=== PATIENT | female | born 1980 | race Caucasian/White ===

== ENCOUNTER 2017-10-05 19:59 | Emergency (ER) | END 2017-10-05 23:38 | disposition home or self-care (01) ==

== ENCOUNTER 2018-05-04 10:17 | Inpatient (IN) | payer OTHER ==
[~2018-05-04] VITALS: Ht 152.4 cm; Wt 67.0 kg
[2018-05-04 10:31] VITALS: Ht 152.4 cm; Wt 67.0 kg
[2018-05-04] MEDS ORDERED: PNV11TAB PO (10:31)
[2018-05-04 10:32] VITALS: BP 115/70; PULSE 70; RESP 18
--- NOTE | 2018-05-04 11:32 | TRIAGE ---
OB Triage Datetime Report Generated by CPN: 05/04/2018 11:32 Datetime: 05/04/2018 11:23 Vaginal Exam Dilatation (cms): 2.0 Effacement (%): 60 Station: -2 Exam By: A JAVONUKASYAN Datetime: 05/04/2018 10:35 Assessment Type: Triage EGA: 39.4 Maternal Assessment Level of Consciousness: Fully Conscious DTR's/Clonus: DTRs 2+; No Clonus Headache: Denies Blurred Vision: No Respiratory Effort: Unlabored; Regular Rhythm; Equal Expansion Breath Sounds, Left: Clear and Equal Breath Sounds, Right: Clear and Equal Nausea/Vomiting: Denies RUQ Epigastric Pain: Denies Lower Extremities Edema: None Degree: None Upper Extremities Edema: None Degree: None Facial Edema: None Fall Risk Assessment History of Falling: (0) No Secondary Diagnosis: (0) No Ambulatory Aid: (0) Bedrest/Nurse Assist IV Therapy: (0) No Gait: (0) Normal/Bedrest/Immobile Mental Status: (0) Oriented to Own Ability Fall Score: 0 Fall Risk Score Definition: No Risk: No action required Labor Evaluation Frequency: OCCAS Monitor Mode: External Duration (sec)2399: 60-70 Quality: Mild Pattern: Normal: <= 5 Contractions in 10 Minutes Resting Tone [place]: Relaxed Heart Rate FHR Baseline Rate: 135 Monitor Mode: External US Variability: Moderate 6-25 bpm Accelerations: 15X15 Decelerations: None Category: Category I Datetime: 05/04/2018 10:34 Time of Arrival: 05/04/2018 10:10 Arrived By: Ambulatory Arrived From: Home Chief Complaint: DFM Movement: Present Contractions: Denies/Absent Rupture of Membranes: Denies Vaginal Bleeding: None Vaginal Discharge: Denies Recent Sexual Intercouse: Denies Abdominal Trauma: Not Applicable Patient Complaints: Other Time Provider Notified: 05/04/2018 10:45 Provider Notified: DR NOWAK Initial Plan: JAVID BPKirstin
[2018-05-04] MEDS ORDERED: METHYLERGONOVINE 0.2 MG INJ IM PRN ×2 (12:00→23:30)
[2018-05-04] MEDS ORDERED: OXYTOCIN 30 UNITS/LR 500 ML IV SCH ×4 (12:00→23:15)
[2018-05-04] MEDS ORDERED: CARBOPROST 250 MCG INJ IM PRN ×2 (12:00→23:30)
[2018-05-04] MEDS ORDERED: BUTORPHANOL 2 MG INJ IV PRN (12:00)
[2018-05-04] MEDS ORDERED: OXYTOCIN 30 UNITS/LR 500 ML IV PRN ×2 (12:00→23:30)
[2018-05-04] MEDS ORDERED: MISOPROSTOL 200 MCG TAB PR PRN ×2 (12:00→23:30)
[2018-05-04] MEDS ORDERED: IBUPROFEN 600 MG TAB PO PRN (12:00)
[2018-05-04] MEDS ORDERED: LIDOCAINE 1% (MPF) 30 ML INJ INJ PRN (12:00)
[2018-05-04] MEDS: LACTATED RINGER'S 1,000 ML IV SCH ×2 (12:32→18:52)
--- NOTE | 2018-05-04 17:01 | HP ---
Date/Time of Note Date/Time of Note DATE: 05/04/18 TIME: 16:52 OB - History Hx of Present Free Text/Dictation 37-year-old 012 with single intrauterine at 39 weeks and 4 days with a KIMBERLY of 05/07/2018 complaining of decreased movement. She denies nausea, vomiting, shortness of breath, chest pain, headache, visual changes, vaginal bleeding or LOF. Chief Complaint: Decreased movement Estimated Due Date: May 07, 2018 : 4 Para: 2 Spontaneous : 1 Therapeutic : 0 Care: Good Care Ultrasounds: Normal mid trimester US Obstetrical Complications: None Medical Complications: None Past Family/Social History * Past Medical, Surgical, Family and Obstetric Histories reviewed from chart. Blood Type: O+ Rubella: immune RPR/VDRL: Negative GBS Status: Negative HBsAG: Negative OB Admission Exam Vital Signs Vital Signs Vital Signs Date Temp Pulse Resp B/P (MAP) Pulse Ox O2 O2 Flow FiO2 Time Delivery Rate 05/04/18 98.0 70 18 115/70 Room Air 10:32 (85) Physical Exam HEENT: WNL Heart: Rhythm Normal Lungs: Clear Abdomen: WNL Extremities: Normal Cervical Dilatation: 2cm Effacement: 75% Station: -2 Membranes: Intact Heart Rate: 140's Accelerations: Accelerations Present Decelerations: No Decelerations Varibility: Moderate Contractions on Admission: < 5 Minutes Apart Intensity: Moderate Last 72 hours Lab Results CBC & BMP 05/04/18 12:28 OB Assessment/Plan Other plan: 37-year-old at 39 weeks and 4 days presented to triage with complaint of decreased movement and uterine contractions. cervix is favorable. She was admitted for augmentation of labor. - FHR: No sign of metabolic acidosis- Category I - Continuous EFM, toco - CBC, blood type and screen - Analgesia options with R/B/A discussed in detail with patient - Epidural per patient request - Please see the orders - O+/Rubella: Immune - GBS: negative Admission, procedures, expectations, risks and possible complications have been discussed in detail with the patient. Risk of vaginal delivery including but not limited to bleeding, infection, cervical laceration, placental retention, injury to fetus, blood transfusion, blood transfusion related infection, risk of anesthesia, adhesion, cervical laceration, episiotomy/laceration, possible delivery with risk of bleeding, infection, injury to other organs (bowel, bladder, ureter, vessels, nerves), injury to fetus, blood transfusion, blood transfusion related infection, risk of anesthesia, scar and hernia formation, needs for future , removal of uterus or any other indicated surgery discussed with the patient. She expressed understanding and repeats the risks. All of her questions were answered. She signed the informed consent. PHYSICIAN'S VERIFICATION OF INFORMED CONSENT The patient was counseled regarding the procedure, its indications, risks, potential complications and alternatives and any questions were answered. Consent was obtained. PLANNED PROCEDURE/TREATMENT: Vaginal delivery, episiotomy, repair of laceration possible delivery ELZA NOWAK May 04, 2018 17:01
[2018-05-04 22:20] VITALS: BP 121/64; PULSE 77; RESP 20
--- NOTE | 2018-05-04 23:18 | LDN ---
Date/Time of Note Date/Time of Note DATE: 05/04/18 TIME: 23:18 Delivery Summary May 04, 2018 Patient had precipitous delivery. Delivery without epidural. Shoulder dystocia noted after delivery of the head. Resolved with Chase maneuver and suprapubic pressure. Right shoulder anterior shoulder and behind the symphysis pubis. No fundal pressure applied. With gentle traction while suprapubic pressure was applied and with Macrobid maneuver anterior shoulder then the posterior shoulder and the rest of the body delivered without any complication. There was a first-degree perineal laceration repaired using 3-0 chromic. Hemostasis was complete. Placenta delivered after delivery of the baby shortly. Fundus was firm. Weeks of Gestation 39 weeks and 4 days Placenta Delivered: Spontaneously Meconium: none Episiotomy: No Indication for episiotomy N/A Perineal laceration: 1 Laceration repair: First-degree perineal laceration repaired using 3-0 chromic Anesthesia type: None Estimated blood loss: 300 Sponge & Needle done & correct: Yes All needle counts correct: Yes Any foreign bodies felt in the: No Infant Delivery Information Sex Infant Sex: male Apgars 1 Minute: 8 5 Minute: 9 Suctioning Nose & mouth suctioned at jessica: Yes Delee suction performed: Yes Umbilical Cord Umbilical cord with: 3 Vessels Cord presentations: no nuchal cord Cord Blood was obtained: Yes HARRY SHEETS MD May 04, 2018 23:18
[2018-05-04] MEDS ORDERED: DIPHENHYDRAMINE 25 MG CAP PO PRN (23:30)
[2018-05-04] MEDS ORDERED: ACETAMINOPHEN 325 MG TAB PO PRN (23:30)
[2018-05-04] MEDS ORDERED: ZOLPIDEM 5 MG TAB PO PRN (23:30)
[2018-05-04] MEDS ORDERED: HYDROCODONE/APAP (5/325) TAB PO PRN (23:30)
[2018-05-04] MEDS ORDERED: WITCH HAZEL/GLYCERIN PAD PR PRN (23:30)
[2018-05-04] MEDS ORDERED: LANOLIN HPA 1 PKT TOP PRN (23:30)
[2018-05-04] MEDS ORDERED: ONDANSETRON 4 MG INJ IV PRN (23:30)
[2018-05-04] MEDS ORDERED: NACL 0.9% 3 ML SYG IV SCH (23:30)
[2018-05-04] MEDS: IBUPROFEN 600 MG TAB PO SCH (23:58)
[2018-05-05 03:23] VITALS: BP 120/60; PULSE 77; RESP 20
--- NOTE | 2018-05-05 03:26 | NUR ---
EOSS NO DISTRESS, NEEDS ATTENDED TO MADE COMFORTABLE FOR CBC TODAY
[2018-05-05] MEDS: IBUPROFEN 600 MG TAB PO SCH ×3 (05:19→17:11)
[2018-05-05 07:50] VITALS: BP 80/52; PULSE 76; RESP 16
[2018-05-05] MEDS: SENNA/DOCUSATE NA (8.6MG/50MG) TAB PO SCH ×2 (09:21→20:53)
--- NOTE | 2018-05-05 12:26 | QN ---
Documentation Comment Post normal vaginal delivery day 1 Afebrile Vital signs are stable Abdomen soft Uterus firm Lochia normal Extremities normal LEYLA ROSE MD May 05, 2018 12:26
[2018-05-05 16:00] VITALS: BP 91/66; PULSE 71; RESP 16
--- NOTE | 2018-05-05 17:53 | NUR ---
EOSS: VSS. AMBULATING AND VOIDING. BREAST FEEDING WELL AND GOOD BONDING SEEN WITH THE BABY. FAMILY AT THE BEDSIDE
[2018-05-05 20:29] VITALS: BP 98/58; PULSE 76; RESP 18
[2018-05-06] MEDS: IBUPROFEN 600 MG TAB PO SCH ×3 (00:03→12:56)
[2018-05-06 04:21] VITALS: BP 89/57; PULSE 64; RESP 18
--- NOTE | 2018-05-06 05:18 | NUR ---
EOSS: Vital signs stable. No acute distress. Ambulating well. well. Bonding well with baby. present at bedside.
[2018-05-06] MEDS: SENNA/DOCUSATE NA (8.6MG/50MG) TAB PO SCH (08:43)
[2018-05-06] MEDS ORDERED: MEASLES,MUMPS,RUBELLA VACCINE INJ SC* ONE (09:00)
[2018-05-06] MEDS ORDERED: DIPHTH/TET/ACEL PERTUSS (ADULT) 0.5 ML VIAL IM* ONE (09:00)
[2018-05-06] MEDS ORDERED: VARICELLA VACCINE LIVE/PF 1,350 UNIT/0.5 ML ML SC* ONE (09:00)
--- NOTE | 2018-05-06 09:55 | PD.PPDC ---
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
--- NOTE | 2018-05-06 09:57 | DS ---
Date/Time of Note Date/Time of Note DATE: 05/06/18 TIME: 09:55 Discharge Summary Admission/Discharge Info Admit Date/Time May 04, 2018 at 11:30 Discharge Date/Time May 06, 2018 at 10 AM Discharge Diagnosis Post normal vaginal delivery day 2 Patient Condition: Good Consults None Procedures Normal vaginal delivery Hx of Present Illness Term admitted to the hospital in labor Hospital Course Satisfactory recovery uneventful Home Meds Reported Medications [id number] ( 19) 1 Each Tablet, 1 TAB PO DAILY, TAB 05/04/18 Follow-up Plan instruction given recommended to make appointment to be seen at the clinic in 2 weeks Primary Care Provider Care Physician No Primary Time spent on discharge: < 30 minutes Pending Labs Laboratory Tests Test 05/06/18 07:00 White Blood Count 10.0 10^3/ul (4.8-10.8) Red Blood Count 3.74 10^6/ul (4.20-5.40) Hemoglobin 12.0 g/dl (12.0-16.0) Hematocrit 36.5 % (37.0-47.0) Mean Corpuscular Volume 97.6 fl (82.0-101.0) Mean Corpuscular Hemoglobin 32.1 pg (29.0-33.0) Mean Corpuscular Hemoglobin Concent 32.9 g/dl (32.0-37.0) Red Cell Distribution Width 12.9 % (11.5-14.5) Platelet Count 163 10^3/UL (140-415) Mean Platelet Volume 11.4 fl (7.4-10.4) Immature Granulocytes % 0.600 % (0.001-0.429) Neutrophils % 67.5 % (39.0-77.0) Lymphocytes % 21.6 % (15.0-51.0) Monocytes % 6.5 % (0.0-11.0) Eosinophils % 3.3 % (0.0-7.0) Basophils % 0.5 % (0.0-2.0) Nucleated Red Blood Cells % 0.0 /100WBC (0.0-0.0) Immature Granulocytes # 0.060 10^3/ul (0.0-0.031) Neutrophils # 6.8 10^3/ul (1.6-7.5) Lymphocytes # 2.2 10^3/ul (0.8-2.9) Monocytes # 0.7 10^3/ul (0.3-0.9) Eosinophils # 0.3 10^3/ul (0.0-0.5) Basophils # 0.1 10^3/ul (0.0-0.1) Nucleated Red Blood Cells # 0.0 10^3/ul (0.0-0.0) LEYLA ROSE MD May 06, 2018 09:57
[2018-05-06 10:16] VITALS: BP 100/56; PULSE 66; RESP 17
== END 2018-05-06 15:30 | disposition home or self-care (01) | DRG 807 ==
LOC: OBT 10:17 → L-D 10:18 → OBT 11:34 → PP1 22:21
PROVIDERS: ADMIT Obstetrics & Gynecology; ATTEND Obstetrics & Gynecology
PROC: 10E0XZZ Delivery of Products of Conception, External Approach (ICD-10-PCS; principal; 2018-05-04)
PROC: 0HQ9XZZ Repair Perineum Skin, External Approach (ICD-10-PCS; 2018-05-04)
DX: O70.0 First degree perineal laceration during delivery (principal); Z37.0 Single live birth; O76 Abnormality in fetal heart rate and rhythm complicating labor and delivery; Z3A.39 39 weeks gestation of pregnancy
CPT/HCPCS: 76815; 76818; 85025; 85610; 85730; 86592; 86850; 86900; 86901; 87340; G0463; J2210; J2590; J7120